=== PATIENT | male | born 1960 | race Two or more races ===

== ENCOUNTER 2021-10-26 16:34 | Inpatient (IN) | payer OTHER ==
[~2021-10-26 16:34] MED LIST: Iopamidol-370 76% 500 ML 1 ML ONE
[2021-10-26] MEDS ORDERED: ceFAZolin 2 GM/DEX 5% 100 ML BAG ONE (16:40)
[2021-10-26] MEDS ORDERED: Boostrix 0.5 ML (Tdap) VIAL ONE (16:40)
[2021-10-26] MEDS ORDERED: Fentanyl 100 MCG/2 ML VIAL ONE ×2 (16:46→18:00)
[2021-10-26 16:52] LABS: #Basophils 0.1 thou/uL (0.0-0.2); #Eosinphils 0.1 thou/uL (0.0-0.7); #Lymphocytes 2.2 thou/uL (1.20-3.40); #Monocytes 0.9 thou/uL (0.11-0.59); #Neutrophils 13.2 thou/uL (1.40-6.50); %Basophils 0.4 % (0.0-1.0); %Eosinophils 0.8 % (0.0-10.0); %Lymphocytes 13.1 % (21.0-51.0); %Monocytes 5.5 % (0.0-10.0); %Neutrophils 80.2 % (42.0-75.0); Hemoglobin 13.5 g/dL (14.0-18.0); Mean Corpuscular HGB CONC 33.2 g/dL (32.0-36.0); Mean Corpuscular Hemoglobin 32.2 pg (27.0-31.0); Mean Platelet Volume 6.2 fL (7.4-10.4); Platelet Count 238 thou/uL (130-400); RBC Distribution Width 12.9 % (11.5-14.5); Red Blood Cell (RBC) Count 4.18 mill/uL (4.70-6.10); White Blood Cell (WBC) Count 16.4 thou/uL (4.8-10.8)
[2021-10-26 17:00] LABS: Bilirubin Negative (Negative); Blood, Urine Negative (Negative); Clarity Clear (Clear); Glucose, Urine (Dipstick) Normal (Negative); Ketone, Urine Negative (Negative); Leukocyte Negative Leu/uL (Negative); Nitrite Negative (Negative); Protein, Urine (Dipstick) Negative (Neg-Trace); Specific Gravity, Urine 1.012 (1.002-1.036); Urobilinogen Normal mg/dL (Less than 2); pH, Urine 6.5 (5.0-9.0)
[2021-10-26 17:03] LABS: INR-International Normal Ratio 1.1; Prothrombin Time 14.8 sec (12.0-14.7)
[2021-10-26 17:04] LABS: PTT 37.3 sec (22.9-36.1)
[2021-10-26 17:13] LABS: Amphetamine Not Detected (NotDetected); Barbiturates Screen Not Detected (NotDetected); Benzodiazepine Screen Not Detected (NotDetected); Cocaine Metabolite Screen Detected (NotDetected); Methadone Not Detected (NotDetected); Methamphetamine Not Detected (NotDetected); Opiate Screen Not Detected (NotDetected); Oxycodone Screen Not Detected (NotDetected); Phencyclidine (PCP) Not Detected (NotDetected); THC/Cannabinoid Screen Not Detected (NotDetected); Tricyclic Screen Not Detected (NotDetected)
[2021-10-26] MEDS ORDERED: fentaNYL Citrate/PF 2,000 MCG in Sodium Chloride 0.9% 60 ML IV SCH (17:15)
[2021-10-26 17:21] LABS: ALT (SGPT) 26 U/L (8-55); AST (SGOT) 44 U/L (5-34); Albumin 3.7 g/dL (3.4-4.8); Alcohol Less than 10 mg/dL (Less than 10); Alkaline Phosphatase 85 U/L (40-110); Anion Gap 9 mmol/L (10-20); BUN (Urea Nitrogen) 9 mg/dL (8.4-25.7); Bilirubin, Total 0.4 mg/dL (0.2-1.2); Calc. Creatinine Clearance 0 mL/min (70-130); Calcium 8.7 mg/dL (7.8-10.44); Carbon Dioxide 24 mmol/L (23-31); Chloride 110 mmol/L (98-107); Globulin 3.1 g/dL (2.4-3.5); Glucose 134 mg/dL (80-115); Potassium 3.3 mmol/L (3.5-5.1); Protein, Total 6.8 g/dL (5.8-8.1); Sodium 140 mmol/L (136-145)
[2021-10-26 17:22] LABS: Acetaminophen Less than 6.0 mcg/mL (10.0-30.0); Alcohol Less than 10 mg/dL (Less than 10); Salicylate Less than 8.0 mg/dL (15.0-30.0)
[2021-10-26 17:22] LABS: Actual Bicarbonate (HCO3a) 23.4 mEq/L (22-28); Base Excess (BEa) -1.8 mEq/L (-2.0 to +3.0); CO2 Tension 41.3 mmHg (35.0-45.0); Calcium, Ionized (arterial) 1.11 mmol/L (1.12-1.30); Hemoglobin (Hb) 12.6 g/dL (14.0-18.0); O2 Tension (PaO2), arterial 96.4 mmHg (> 80.0); pH, Arterial 7.37 (7.35-7.45)
[2021-10-26] MEDS ORDERED: manNITOL 20% 500 ML ONE (17:23)
[2021-10-26 17:31] LABS: ALV-art Gradient 208.475 mmHg (0-20); Puncture Site RRA
[2021-10-26] MEDS ORDERED: Lidocaine 0.5%/Epinephrine 1:200,000 50 ml Vial ONE (17:41)
[2021-10-26] MEDS ORDERED: Thrombin 5000 UNITS/5 ML VIAL ONE (17:47)
[2021-10-26] MEDS ORDERED: Neomycin-Polymyxin 1 ML AMP ONE (17:47)
[2021-10-26] MEDS ORDERED: Phenylephrine 10 MG/ML VIAL ONE (17:58)
[2021-10-26] MEDS ORDERED: Calcium Chloride 1 GM/10 ML Abboject SYRINGE ONE (17:58)
[2021-10-26] MEDS ORDERED: PROPOFOL 200 MG/20 ML VIAL ONE (17:58)
[2021-10-26] MEDS ORDERED: Rocuronium Bromide 10 MG/ML (10ML VIAL) ONE (17:58)
[2021-10-26] MEDS ORDERED: ePHEDrine 50 MG/ML VIAL ONE (17:58)
[2021-10-26] MEDS ORDERED: Midazolam HCl 2 mg/2 ml Vial ONE (18:19)
[2021-10-26] MEDS ORDERED: Albumin 5% 250 ML ONE (18:24)
[2021-10-26] MEDS ORDERED: Bacitracin Zinc Ointment 30 gm TUBE ONE (19:00)
[2021-10-26] MEDS ORDERED: Ondansetron PF 4 MG/2 ML Vial IVP PRN (20:03)
[2021-10-26] MEDS ORDERED: Ventilator Sedation Protocol 1 EACH FS SCH (20:03)
[2021-10-26] MEDS ORDERED: Ondansetron ODT 4 MG TAB PO PRN (20:03)
[2021-10-26] MEDS ORDERED: Dextrose 5% in Water 1,000 ML IV PRN (20:03)
[2021-10-26] MEDS ORDERED: Dextrose 50% Abboject 50 ML SYRINGE SLOW IVP PRN (20:03)
[2021-10-26] MEDS ORDERED: Morphine 2 MG/ML VIAL SLOW IVP PRN (20:15)
[2021-10-26] MEDS ORDERED: DISCONTINUE PREVIOUS NARCOTIC PAIN MEDICATIONS AND BENZODIAZEPINES FS SCH (20:15)
[2021-10-26] MEDS ORDERED: Propofol BOLUS 1,000 MG/100 ML VIAL IV PRN (20:15)
[2021-10-26] MEDS ORDERED: Fentanyl BOLUS 250 ML IVPB PRN (20:15)
[2021-10-26] MEDS: hydrALAZINE 20 MG/ML VIAL SLOW IVP PRN (20:31)
[2021-10-26] MEDS: Sodium Chloride 0.9% 1,000 ML IV SCH (20:33)
[2021-10-26 20:49] LABS: Base Excess (BEa) -8.1 mEq/L (-2.0 to +3.0); CO2 Tension 38.8 mmHg (35.0-45.0); Calcium, Ionized (arterial) 1.23 mmol/L (1.12-1.30); Carboxyhemoglobin (COHb) 1.3 gm% (0.0-3.0); Hemoglobin (Hb) 11.7 g/dL (14.0-18.0); Potassium - ABG Lab 4.44 mmol/L (3.70-5.30); pH, Arterial 7.28 (7.35-7.45)
[2021-10-26 20:50] LABS: Puncture Site Arterial Line
[2021-10-26] MEDS ORDERED: hydrALAZINE 20 MG/ML VIAL SLOW IVP SCH ×2 (21:00→21:45)
[2021-10-26] MEDS: fentaNYL Citrate/PF 2,000 MCG in Sodium Chloride 0.9% 60 ML IV SCH (21:09)
[2021-10-26 23:32] LABS: Actual Bicarbonate (HCO3a) 16.4 mEq/L (22-28); Calcium, Ionized (arterial) 1.12 mmol/L (1.12-1.30); Carboxyhemoglobin (COHb) 0.8 gm% (0.0-3.0); O2 Tension (PaO2), arterial 65.7 mmHg (> 80.0); Potassium - ABG Lab 4.27 mmol/L (3.70-5.30); pH, Arterial 7.46 (7.35-7.45)
[2021-10-26 23:34] LABS: CO2 Tension 23.9 mmHg (35.0-45.0)
[2021-10-26 23:35] LABS: ALV-art Gradient 260.925 mmHg (0-20); Puncture Site ARTERIAL LINE
[2021-10-26] MEDS ORDERED: Norepinephrine 8 MG/0.9% NS 250 ML ONE (23:44)
[2021-10-26] MEDS: Norepinephrine 8 MG/0.9% NS 250 ML IVPB SCH (23:52)
[2021-10-27] MEDS: Propofol 1,000 MG/100 ML VIAL IV PRN ×2 (00:50→07:48)
[2021-10-27] MEDS: Lorazepam 2 MG/ML VIAL SLOW IVP PRN (01:14)
[2021-10-27] MEDS: Sodium Chloride 0.9% 1,000 ML IV SCH ×3 (03:59→21:28)
[2021-10-27 05:20] LABS: #Lymphocytes 1.2 thou/uL (1.20-3.40); #Monocytes 1.1 thou/uL (0.11-0.59); #Neutrophils 12.5 thou/uL (1.40-6.50); %Eosinophils 0.2 % (0.0-10.0); %Lymphocytes 8.1 % (21.0-51.0); %Monocytes 7.1 % (0.0-10.0); %Neutrophils 84.6 % (42.0-75.0); Hemoglobin 10.4 g/dL (14.0-18.0); Mean Corpuscular HGB CONC 34.5 g/dL (32.0-36.0); Mean Corpuscular Hemoglobin 33.1 pg (27.0-31.0); Mean Corpuscular Volume 95.8 fL (78.0-98.0); Mean Platelet Volume 6.7 fL (7.4-10.4); Platelet Count 250 thou/uL (130-400); RBC Distribution Width 12.9 % (11.5-14.5); Red Blood Cell (RBC) Count 3.14 mill/uL (4.70-6.10); White Blood Cell (WBC) Count 14.8 thou/uL (4.8-10.8)
[2021-10-27 05:38] LABS: Anion Gap 12 mmol/L (10-20); BUN (Urea Nitrogen) 12 mg/dL (8.4-25.7); Calc. Creatinine Clearance 77 mL/min (70-130); Calcium 8.7 mg/dL (7.8-10.44); Carbon Dioxide 19 mmol/L (23-31); Chloride 114 mmol/L (98-107); Glucose 164 mg/dL (80-115); Magnesium 1.7 mg/dL (1.6-2.6); Phosphorus 3.3 mg/dL (2.3-4.7); Potassium 4.4 mmol/L (3.5-5.1); Sodium 141 mmol/L (136-145)
[2021-10-27 07:03] LABS: Actual Bicarbonate (HCO3a) 18.6 mEq/L (22-28); Base Excess (BEa) -5.3 mEq/L (-2.0 to +3.0); CO2 Tension 30.5 mmHg (35.0-45.0); Calcium, Ionized (arterial) 1.13 mmol/L (1.12-1.30); Carboxyhemoglobin (COHb) 0.3 gm% (0.0-3.0); Hemoglobin (Hb) 10.6 g/dL (14.0-18.0); O2 Tension (PaO2), arterial 113.2 mmHg (> 80.0); Potassium - ABG Lab 4.35 mmol/L (3.70-5.30)
[2021-10-27] MEDS ORDERED: Acetaminophen 650 MG/20.3 ML UDCUP PO PRN (07:08)
[2021-10-27] MEDS ORDERED: Piperacillin/Tazobactam 3.375 GM in Sodium Chloride 0.9% 100 ML IVPB SCH ×2 (07:15→07:30)
[2021-10-27] MEDS: Norepinephrine 8 MG/0.9% NS 250 ML IVPB SCH (07:47)
[2021-10-27 07:48] LABS: ALV-art Gradient 205.175 mmHg (0-20); Puncture Site Arterial Line
[2021-10-27] MEDS: fentaNYL Citrate/PF 2,000 MCG in Sodium Chloride 0.9% 60 ML IV SCH (09:59)
[2021-10-27] MEDS: Famotidine/PF 20 mg/2ml Vial SLOW IVP SCH ×2 (10:16→20:27)
[2021-10-27] MEDS: HumaLOG 300 UNITS/3 ML VIAL SC PRN (10:57)
[2021-10-27] MEDS: Piperacillin/Tazobactam 3.375 GM in Sodium Chloride 0.9% 100 ML IVPB SCH ×2 (15:02→21:28)
[2021-10-27] MEDS: fentaNYL Citrate-0.9 % NaCl/PF 100 ML IVPB SCH (20:27)
[2021-10-27] MEDS: hydrALAZINE 20 MG/ML VIAL SLOW IVP PRN (23:29)
[2021-10-28] MEDS ORDERED: Labetalol HCl 100 MG/20 ML VIAL SLOW IVP PRN (00:52)
[2021-10-28] MEDS ORDERED: hydrALAZINE 20 MG/ML VIAL SLOW IVP PRN (00:55)
[2021-10-28] MEDS ORDERED: hydrALAZINE 20 MG/ML VIAL SLOW IVP SCH (01:00)
[2021-10-28 02:01] LABS: Actual Bicarbonate (HCO3a) 21.9 mEq/L (22-28); CO2 Tension 33.5 mmHg (35.0-45.0); Calcium, Ionized (arterial) 1.08 mmol/L (1.12-1.30); Carboxyhemoglobin (COHb) 0.3 gm% (0.0-3.0); Hemoglobin (Hb) 8.4 g/dL (14.0-18.0); O2 Tension (PaO2), arterial 71.2 mmHg (> 80.0); Potassium - ABG Lab 3.81 mmol/L (3.70-5.30); pH, Arterial 7.43 (7.35-7.45)
[2021-10-28] MEDS: Lorazepam 2 MG/ML VIAL SLOW IVP PRN ×2 (02:49→15:23)
[2021-10-28] MEDS: Propofol 1,000 MG/100 ML VIAL IV PRN ×3 (04:07→21:29)
[2021-10-28 04:32] LABS: #Lymphocytes 1.6 thou/uL (1.20-3.40); #Neutrophils 8.6 thou/uL (1.40-6.50); %Basophils 0.1 % (0.0-1.0); %Eosinophils 0.2 % (0.0-10.0); %Lymphocytes 14.5 % (21.0-51.0); %Monocytes 8.9 % (0.0-10.0); %Neutrophils 76.3 % (42.0-75.0); Hemoglobin 8.1 g/dL (14.0-18.0); Mean Corpuscular HGB CONC 34.4 g/dL (32.0-36.0); Mean Corpuscular Hemoglobin 33.2 pg (27.0-31.0); Mean Corpuscular Volume 96.7 fL (78.0-98.0); Mean Platelet Volume 6.8 fL (7.4-10.4); Platelet Count 166 thou/uL (130-400); RBC Distribution Width 13.1 % (11.5-14.5); Red Blood Cell (RBC) Count 2.42 mill/uL (4.70-6.10); White Blood Cell (WBC) Count 11.3 thou/uL (4.8-10.8)
[2021-10-28 05:01] LABS: ALT (SGPT) 23 U/L (8-55); AST (SGOT) 49 U/L (5-34); Albumin 2.9 g/dL (3.4-4.8); Alkaline Phosphatase 54 U/L (40-110); Anion Gap 10 mmol/L (10-20); BUN (Urea Nitrogen) 11 mg/dL (8.4-25.7); Bilirubin, Total 0.6 mg/dL (0.2-1.2); Calc. Creatinine Clearance 120 mL/min (70-130); Carbon Dioxide 23 mmol/L (23-31); Chloride 115 mmol/L (98-107); Globulin 2.7 g/dL (2.4-3.5); Glucose 141 mg/dL (80-115); Magnesium 1.7 mg/dL (1.6-2.6); Phosphorus 2.3 mg/dL (2.3-4.7); Potassium 3.7 mmol/L (3.5-5.1); Protein, Total 5.6 g/dL (5.8-8.1); Sodium 144 mmol/L (136-145)
[2021-10-28] MEDS: Piperacillin/Tazobactam 3.375 GM in Sodium Chloride 0.9% 100 ML IVPB SCH ×3 (05:36→21:31)
[2021-10-28] MEDS: Sodium Chloride 0.9% 1,000 ML IV SCH ×3 (05:36→22:58)
[2021-10-28 07:18] LABS: Puncture Site RRA
[2021-10-28 07:19] LABS: ALV-art Gradient 599.925 mmHg (0-20)
[2021-10-28] MEDS: Labetalol HCl 100 MG/20 ML VIAL SLOW IVP PRN (07:58)
[2021-10-28] MEDS: Famotidine/PF 20 mg/2ml Vial SLOW IVP SCH ×2 (08:07→20:26)
[2021-10-28] MEDS: levETIRAcetam in NS 500 MG in Premix Bag 1 BAG IVPB SCH ×2 (08:08→20:26)
[2021-10-28] MEDS: NICARDIPINE IVPB SCH ×2 (11:00→14:21)
[2021-10-28] MEDS: SODIUM CHLORIDE IVPB SCH ×2 (11:00→14:21)
[2021-10-28] MEDS: fentaNYL Citrate-0.9 % NaCl/PF 100 ML IVPB SCH (13:29)
[2021-10-28 17:40] LABS: SARS-CoV-2 PCR by NAA Not Detected (NotDetected)
[2021-10-28] MEDS: Acetaminophen 650 MG/20.3 ML UDCUP PO SCH (21:31)
[2021-10-29] MEDS: fentaNYL Citrate-0.9 % NaCl/PF 100 ML IVPB SCH ×2 (00:20→13:55)
[2021-10-29] MEDS: Acetaminophen 650 MG/20.3 ML UDCUP PO SCH ×4 (02:22→20:57)
[2021-10-29] MEDS: Propofol 1,000 MG/100 ML VIAL IV PRN ×5 (03:20→20:58)
[2021-10-29 04:50] LABS: #Lymphocytes 1.3 thou/uL (1.20-3.40); #Monocytes 0.5 thou/uL (0.11-0.59); #Neutrophils 6.3 thou/uL (1.40-6.50); %Basophils 0.2 % (0.0-1.0); %Eosinophils 0.5 % (0.0-10.0); %Lymphocytes 15.6 % (21.0-51.0); %Monocytes 6.3 % (0.0-10.0); %Neutrophils 77.6 % (42.0-75.0); Hemoglobin 6.6 g/dL (14.0-18.0); Mean Corpuscular HGB CONC 34.6 g/dL (32.0-36.0); Mean Corpuscular Hemoglobin 33.5 pg (27.0-31.0); Mean Corpuscular Volume 96.8 fL (78.0-98.0); Mean Platelet Volume 6.7 fL (7.4-10.4); Platelet Count 130 thou/uL (130-400); RBC Distribution Width 12.9 % (11.5-14.5); Red Blood Cell (RBC) Count 1.98 mill/uL (4.70-6.10); White Blood Cell (WBC) Count 8.1 thou/uL (4.8-10.8)
[2021-10-29 05:12] LABS: ALT (SGPT) 21 U/L (8-55); AST (SGOT) 42 U/L (5-34); Albumin 2.6 g/dL (3.4-4.8); Alkaline Phosphatase 47 U/L (40-110); Anion Gap 10 mmol/L (10-20); BUN (Urea Nitrogen) 10 mg/dL (8.4-25.7); Bilirubin, Total 0.5 mg/dL (0.2-1.2); Calc. Creatinine Clearance 121 mL/min (70-130); Calcium 7.4 mg/dL (7.8-10.44); Carbon Dioxide 22 mmol/L (23-31); Chloride 114 mmol/L (98-107); Globulin 2.4 g/dL (2.4-3.5); Glucose 159 mg/dL (80-115); Potassium 3.4 mmol/L (3.5-5.1); Sodium 143 mmol/L (136-145)
[2021-10-29 05:14] LABS: Phosphorus 1.5 mg/dL (2.3-4.7)
[2021-10-29] MEDS: Piperacillin/Tazobactam 3.375 GM in Sodium Chloride 0.9% 100 ML IVPB SCH ×3 (05:59→21:02)
[2021-10-29] MEDS ORDERED: Potassium Phosphate 30 MMOL in Sodium Chloride 0.9% 250 ML 250 ML IVPB SCH (06:30)
[2021-10-29] MEDS: Sodium Chloride 0.9% 1,000 ML IV SCH ×2 (06:40→14:57)
[2021-10-29 06:53] LABS: Actual Bicarbonate (HCO3a) 23.3 mEq/L (22-28); Base Excess (BEa) -1.5 mEq/L (-2.0 to +3.0); CO2 Tension 39.3 mmHg (35.0-45.0); Carboxyhemoglobin (COHb) 0.5 gm% (0.0-3.0); Hemoglobin (Hb) 7.1 g/dL (14.0-18.0); Potassium - ABG Lab 3.44 mmol/L (3.70-5.30); pH, Arterial 7.39 (7.35-7.45)
[2021-10-29 07:01] LABS: O2 Tension (PaO2), arterial 57.9 mmHg (> 80.0); Puncture Site LRA
[2021-10-29 07:02] LABS: ALV-art Gradient 534.675 mmHg (0-20)
[2021-10-29] MEDS ORDERED: Calcium Chloride 1 GM/10 ML Abboject SYRINGE IVP SCH (08:00)
[2021-10-29] MEDS ORDERED: Calcium Chloride 13.6 MEQ in Sodium Chloride 0.9% 100 ML IVPB SCH (08:30)
[2021-10-29] MEDS ORDERED: FLU VACC QS2021-22(6MOS UP)/PF 60 MCG/0.5 ML SYRINGE IM ONE (09:00)
[2021-10-29] MEDS: levETIRAcetam in NS 500 MG in Premix Bag 1 BAG IVPB SCH (09:03)
[2021-10-29] MEDS: Famotidine/PF 20 mg/2ml Vial SLOW IVP SCH ×2 (09:03→20:57)
[2021-10-29] MEDS ORDERED: Vecuronium 10 MG VIAL ONE (10:50)
[2021-10-29] MEDS ORDERED: Sterile Water 10 ML ONE (10:50)
[2021-10-29] MEDS ORDERED: Vecuronium 10 MG VIAL IV SCH (11:30)
[2021-10-29] MEDS: Labetalol HCl 100 MG/20 ML VIAL SLOW IVP PRN ×2 (14:27→17:50)
[2021-10-29 14:36] LABS: Hemoglobin 9.6 g/dL (14.0-18.0)
[2021-10-29] MEDS: Senokot S 8.6-50 MG TAB PO SCH (20:57)
[2021-10-29] MEDS: levETIRAcetam in NS 1,000 MG in Premix Bag 1 BAG IVPB SCH (20:57)
[2021-10-30] MEDS: Sodium Chloride 0.9% 1,000 ML IV SCH ×2 (01:06→18:26)
[2021-10-30] MEDS: Acetaminophen 650 MG/20.3 ML UDCUP PO SCH ×4 (02:44→21:49)
[2021-10-30] MEDS: fentaNYL Citrate-0.9 % NaCl/PF 100 ML IVPB SCH ×2 (02:49→12:35)
[2021-10-30] MEDS: Piperacillin/Tazobactam 3.375 GM in Sodium Chloride 0.9% 100 ML IVPB SCH ×3 (05:05→21:50)
[2021-10-30 05:56] LABS: ALT (SGPT) 19 U/L (8-55); AST (SGOT) 33 U/L (5-34); Albumin 2.4 g/dL (3.4-4.8); Alkaline Phosphatase 48 U/L (40-110); Anion Gap 12 mmol/L (10-20); BUN (Urea Nitrogen) 9 mg/dL (8.4-25.7); Bilirubin, Total 0.7 mg/dL (0.2-1.2); Calc. Creatinine Clearance 148 mL/min (70-130); Calcium 7.9 mg/dL (7.8-10.44); Carbon Dioxide 24 mmol/L (23-31); Chloride 114 mmol/L (98-107); Globulin 2.9 g/dL (2.4-3.5); Glucose 175 mg/dL (80-115); Magnesium 2.2 mg/dL (1.6-2.6); Potassium 3.6 mmol/L (3.5-5.1); Protein, Total 5.3 g/dL (5.8-8.1); Sodium 146 mmol/L (136-145)
[2021-10-30 06:58] LABS: #Eosinphils 0.1 thou/uL (0.0-0.7); #Lymphocytes 1.2 thou/uL (1.20-3.40); #Monocytes 0.4 thou/uL (0.11-0.59); #Neutrophils 5.2 thou/uL (1.40-6.50); %Basophils 0.2 % (0.0-1.0); %Eosinophils 1.6 % (0.0-10.0); %Lymphocytes 17.4 % (21.0-51.0); %Monocytes 5.3 % (0.0-10.0); %Neutrophils 75.5 % (42.0-75.0); Hemoglobin 8.5 g/dL (14.0-18.0); Mean Corpuscular HGB CONC 33.5 g/dL (32.0-36.0); Mean Corpuscular Hemoglobin 32.3 pg (27.0-31.0); Mean Corpuscular Volume 96.3 fL (78.0-98.0); Mean Platelet Volume 8.1 fL (7.4-10.4); Platelet Count 117 thou/uL (130-400); RBC Distribution Width 14.2 % (11.5-14.5); Red Blood Cell (RBC) Count 2.63 mill/uL (4.70-6.10); White Blood Cell (WBC) Count 6.9 thou/uL (4.8-10.8)
[2021-10-30 07:30] LABS: Actual Bicarbonate (HCO3a) 26.9 mEq/L (22-28); Base Excess (BEa) 1.5 mEq/L (-2.0 to +3.0); CO2 Tension 45.9 mmHg (35.0-45.0); Calcium, Ionized (arterial) 1.13 mmol/L (1.12-1.30); Carboxyhemoglobin (COHb) 0.3 gm% (0.0-3.0); Hemoglobin (Hb) 9.4 g/dL (14.0-18.0); O2 Tension (PaO2), arterial 97.3 mmHg (> 80.0); Potassium - ABG Lab 3.49 mmol/L (3.70-5.30); pH, Arterial 7.39 (7.35-7.45)
[2021-10-30 07:32] LABS: ALV-art Gradient 415.725 mmHg (0-20); Peep/CPAP 12.5 cmH2O; Puncture Site ARTLINE
[2021-10-30] MEDS: Famotidine/PF 20 mg/2ml Vial SLOW IVP SCH ×2 (09:21→21:50)
[2021-10-30] MEDS: Propofol 1,000 MG/100 ML VIAL IV PRN ×3 (09:21→21:50)
[2021-10-30] MEDS: Senokot S 8.6-50 MG TAB PO SCH ×2 (09:21→21:50)
[2021-10-30] MEDS: Lactated Ringer's 1,000 ML IV SCH ×2 (09:21→21:51)
[2021-10-30] MEDS: Polyethylene Glycol 3350 17 GM Packet PO SCH (09:21)
[2021-10-30] MEDS: levETIRAcetam in NS 1,000 MG in Premix Bag 1 BAG IVPB SCH (09:22)
[2021-10-30] MEDS: Labetalol HCl 100 MG/20 ML VIAL SLOW IVP PRN ×3 (09:24→21:51)
[2021-10-30] MEDS ORDERED: Furosemide 20 MG/2 ML VIAL SLOW IVP SCH (11:15)
[2021-10-30] MEDS ORDERED: hydrALAZINE 20 MG/ML VIAL SLOW IVP PRN (13:45)
[2021-10-30] MEDS ORDERED: levETIRAcetam in NS 1,000 MG in Premix Bag 1 BAG IVPB SCH (15:15)
[2021-10-30] MEDS: levETIRAcetam in NS 1,500 MG in Premix Bag 1 BAG IVPB SCH (21:50)
[2021-10-30] MEDS: HumaLOG 300 UNITS/3 ML VIAL SC PRN (22:00)
[2021-10-31] MEDS ORDERED: Morphine 4 MG/ML VIAL SLOW IVP PRN (00:14)
[2021-10-31] MEDS: fentaNYL Citrate-0.9 % NaCl/PF 100 ML IVPB SCH (00:36)
[2021-10-31] MEDS: HumaLOG 300 UNITS/3 ML VIAL SC PRN (01:57)
[2021-10-31] MEDS: Acetaminophen 650 MG/20.3 ML UDCUP PO SCH ×4 (02:00→20:00)
[2021-10-31] MEDS: Scopolamine 1.5 mg/72 hour Patch TD SCH (02:05)
[2021-10-31] MEDS: Piperacillin/Tazobactam 3.375 GM in Sodium Chloride 0.9% 100 ML IVPB SCH ×3 (05:17→21:18)
[2021-10-31 05:30] LABS: #Basophils 0.1 thou/uL (0.0-0.2); #Eosinphils 0.2 thou/uL (0.0-0.7); #Lymphocytes 1.6 thou/uL (1.20-3.40); #Monocytes 0.8 thou/uL (0.11-0.59); #Neutrophils 5.6 thou/uL (1.40-6.50); %Basophils 1.2 % (0.0-1.0); %Eosinophils 2.8 % (0.0-10.0); %Lymphocytes 19.2 % (21.0-51.0); %Monocytes 9.9 % (0.0-10.0); Hemoglobin 8.8 g/dL (14.0-18.0); Mean Corpuscular HGB CONC 33.6 g/dL (32.0-36.0); Mean Corpuscular Hemoglobin 32.4 pg (27.0-31.0); Mean Corpuscular Volume 96.5 fL (78.0-98.0); Mean Platelet Volume 8.7 fL (7.4-10.4); Platelet Count 147 thou/uL (130-400); RBC Distribution Width 14.4 % (11.5-14.5); White Blood Cell (WBC) Count 8.3 thou/uL (4.8-10.8)
[2021-10-31 06:07] LABS: Anion Gap 14 mmol/L (10-20); BUN (Urea Nitrogen) 14 mg/dL (8.4-25.7); Calc. Creatinine Clearance 149 mL/min (70-130); Calcium 8.1 mg/dL (7.8-10.44); Carbon Dioxide 25 mmol/L (23-31); Chloride 112 mmol/L (98-107); Glucose 138 mg/dL (80-115); Magnesium 2.3 mg/dL (1.6-2.6); Phosphorus 1.9 mg/dL (2.3-4.7); Potassium 4.2 mmol/L (3.5-5.1); Sodium 147 mmol/L (136-145)
[2021-10-31 06:58] LABS: Actual Bicarbonate (HCO3a) 29.3 mEq/L (22-28); Base Excess (BEa) 4.6 mEq/L (-2.0 to +3.0); CO2 Tension 44.6 mmHg (35.0-45.0); Calcium, Ionized (arterial) 1.08 mmol/L (1.12-1.30); Carboxyhemoglobin (COHb) 0.3 gm% (0.0-3.0); Hemoglobin (Hb) 9.7 g/dL (14.0-18.0); O2 Tension (PaO2), arterial 112.2 mmHg (> 80.0); Potassium - ABG Lab 3.13 mmol/L (3.70-5.30); pH, Arterial 7.44 (7.35-7.45)
[2021-10-31 07:00] LABS: Puncture Site Arterial Line
[2021-10-31 07:01] LABS: Peep/CPAP 12.5 cmH2O
[2021-10-31] MEDS: Propofol 1,000 MG/100 ML VIAL IV PRN ×4 (07:03→23:26)
[2021-10-31] MEDS ORDERED: Calcium Chloride 1 GM/10 ML Abboject SYRINGE IVP SCH (08:15)
[2021-10-31] MEDS: Famotidine/PF 20 mg/2ml Vial SLOW IVP SCH ×2 (09:02→20:00)
[2021-10-31] MEDS: Polyethylene Glycol 3350 17 GM Packet PO SCH (09:03)
[2021-10-31] MEDS: Senokot S 8.6-50 MG TAB PO SCH ×2 (09:03→20:00)
[2021-10-31] MEDS: levETIRAcetam in NS 1,500 MG in Premix Bag 1 BAG IVPB SCH ×2 (09:05→20:01)
[2021-10-31] MEDS ORDERED: Furosemide 20 MG/2 ML VIAL SLOW IVP SCH (11:15)
[2021-10-31] MEDS: Lactated Ringer's 1,000 ML IV SCH (11:29)
[2021-10-31] MEDS: Labetalol HCl 100 MG/20 ML VIAL SLOW IVP PRN ×2 (11:54→19:47)
[2021-10-31] MEDS: hydrALAZINE 20 MG/ML VIAL SLOW IVP PRN (17:35)
[2021-11-01] MEDS: Propofol 1,000 MG/100 ML VIAL IV PRN ×7 (02:41→21:54)
[2021-11-01] MEDS: Acetaminophen 650 MG/20.3 ML UDCUP PO SCH ×4 (02:41→20:30)
[2021-11-01] MEDS: Lactated Ringer's 1,000 ML IV SCH (02:42)
[2021-11-01] MEDS: Labetalol HCl 100 MG/20 ML VIAL SLOW IVP PRN ×2 (02:42→20:26)
[2021-11-01] MEDS: Piperacillin/Tazobactam 3.375 GM in Sodium Chloride 0.9% 100 ML IVPB SCH ×3 (05:04→21:20)
[2021-11-01 06:50] LABS: Anion Gap 9 mmol/L (10-20); BUN (Urea Nitrogen) 16 mg/dL (8.4-25.7); Calc. Creatinine Clearance 135 mL/min (70-130); Calcium 8.4 mg/dL (7.8-10.44); Carbon Dioxide 32 mmol/L (23-31); Chloride 108 mmol/L (98-107); Glucose 161 mg/dL (80-115); Magnesium 2.1 mg/dL (1.6-2.6); Phosphorus 2.3 mg/dL (2.3-4.7); Potassium 3.1 mmol/L (3.5-5.1); Sodium 146 mmol/L (136-145)
[2021-11-01 07:07] LABS: Actual Bicarbonate (HCO3a) 28.2 mEq/L (22-28); Base Excess (BEa) 4.9 mEq/L (-2.0 to +3.0); CO2 Tension 37.1 mmHg (35.0-45.0); Calcium, Ionized (arterial) 1.13 mmol/L (1.12-1.30); Carboxyhemoglobin (COHb) 0.8 gm% (0.0-3.0); Hemoglobin (Hb) 13.7 g/dL (14.0-18.0); O2 Tension (PaO2), arterial 69.2 mmHg (> 80.0); Potassium - ABG Lab 3.13 mmol/L (3.70-5.30)
[2021-11-01 07:08] LABS: ALV-art Gradient 312.225 mmHg (0-20); Peep/CPAP 12.5 cmH2O; Puncture Site LRA
[2021-11-01 08:18] LABS: #Eosinphils 0.3 thou/uL (0.0-0.7); #Lymphocytes 1.4 thou/uL (1.20-3.40); #Monocytes 0.7 thou/uL (0.11-0.59); #Neutrophils 6.7 thou/uL (1.40-6.50); %Basophils 0.1 % (0.0-1.0); %Eosinophils 3.3 % (0.0-10.0); %Lymphocytes 15.4 % (21.0-51.0); %Monocytes 7.7 % (0.0-10.0); %Neutrophils 73.5 % (42.0-75.0); Hemoglobin 8.7 g/dL (14.0-18.0); Mean Corpuscular HGB CONC 31.8 g/dL (32.0-36.0); Mean Corpuscular Hemoglobin 31.2 pg (27.0-31.0); Mean Corpuscular Volume 98.1 fL (78.0-98.0); Platelet Count 171 thou/uL (130-400); RBC Distribution Width 14.1 % (11.5-14.5); White Blood Cell (WBC) Count 9.1 thou/uL (4.8-10.8)
[2021-11-01] MEDS: Senokot S 8.6-50 MG TAB PO SCH ×3 (09:50→20:39)
[2021-11-01] MEDS: Famotidine/PF 20 mg/2ml Vial SLOW IVP SCH ×2 (09:50→20:30)
[2021-11-01] MEDS: hydrALAZINE 20 MG/ML VIAL SLOW IVP PRN ×2 (09:51→14:42)
[2021-11-01] MEDS: Polyethylene Glycol 3350 17 GM Packet PO SCH ×2 (09:51)
[2021-11-01] MEDS: levETIRAcetam in NS 1,500 MG in Premix Bag 1 BAG IVPB SCH ×2 (09:52→20:30)
[2021-11-01] MEDS: Lorazepam 2 MG/ML VIAL SLOW IVP PRN (14:31)
[2021-11-01] MEDS: Vecuronium 10 MG VIAL IV PRN (14:39)
[2021-11-01] MEDS: fentaNYL Citrate-0.9 % NaCl/PF 100 ML IVPB SCH (17:54)
[2021-11-02] MEDS: Acetaminophen 650 MG/20.3 ML UDCUP PO SCH ×4 (02:35→20:48)
[2021-11-02 04:42] LABS: Band 61 % (5-11); Hemoglobin 8.8 g/dL (14.0-18.0); Hypochromia SLIGHT = 6-15 cells (100X) (0-5/hpf); Lymphocytes 5 % (21-51); MDiff Complete? YES; Mean Corpuscular HGB CONC 32.4 g/dL (32.0-36.0); Mean Corpuscular Hemoglobin 31.9 pg (27.0-31.0); Mean Corpuscular Volume 98.6 fL (78.0-98.0); Mean Platelet Volume 8.4 fL (7.4-10.4); Monocytes 2 % (0-10); Neutrophil 32 % (42-75); Platelet Count 202 thou/uL (130-400); RBC Distribution Width 14.4 % (11.5-14.5); Red Blood Cell (RBC) Count 2.77 mill/uL (4.70-6.10); Reflex for Review?? YES; White Blood Cell (WBC) Count 11.5 thou/uL (4.8-10.8)
[2021-11-02 05:04] LABS: Anion Gap 15 mmol/L (10-20); BUN (Urea Nitrogen) 17 mg/dL (8.4-25.7); Calc. Creatinine Clearance 133 mL/min (70-130); Calcium 8.4 mg/dL (7.8-10.44); Carbon Dioxide 28 mmol/L (23-31); Chloride 108 mmol/L (98-107); Glucose 168 mg/dL (80-115); Magnesium 2.1 mg/dL (1.6-2.6); Phosphorus 3.2 mg/dL (2.3-4.7); Potassium 3.7 mmol/L (3.5-5.1); Sodium 147 mmol/L (136-145)
[2021-11-02] MEDS: Piperacillin/Tazobactam 3.375 GM in Sodium Chloride 0.9% 100 ML IVPB SCH ×3 (05:59→22:35)
[2021-11-02] MEDS: fentaNYL Citrate-0.9 % NaCl/PF 100 ML IVPB SCH ×2 (06:01→20:27)
[2021-11-02] MEDS: Propofol 1,000 MG/100 ML VIAL IV PRN ×4 (06:10→19:29)
[2021-11-02 07:40] LABS: Actual Bicarbonate (HCO3a) 29.6 mEq/L (22-28); Base Excess (BEa) 4.5 mEq/L (-2.0 to +3.0); CO2 Tension 46.5 mmHg (35.0-45.0); Calcium, Ionized (arterial) 1.11 mmol/L (1.12-1.30); Carboxyhemoglobin (COHb) 0.7 gm% (0.0-3.0); O2 Tension (PaO2), arterial 66.3 mmHg (> 80.0); Potassium - ABG Lab 3.52 mmol/L (3.70-5.30); pH, Arterial 7.42 (7.35-7.45)
[2021-11-02 07:41] LABS: ALV-art Gradient 303.375 mmHg (0-20); Peep/CPAP 12.5 cmH2O; Puncture Site LRA
[2021-11-02] MEDS: levETIRAcetam in NS 1,500 MG in Premix Bag 1 BAG IVPB SCH ×2 (09:26→20:49)
[2021-11-02] MEDS: Senokot S 8.6-50 MG TAB PO SCH ×3 (09:30→20:51)
[2021-11-02] MEDS: Famotidine/PF 20 mg/2ml Vial SLOW IVP SCH ×2 (09:31→20:49)
[2021-11-02] MEDS: Polyethylene Glycol 3350 17 GM Packet PO SCH (09:31)
[2021-11-02] MEDS: Lorazepam 2 MG/ML VIAL SLOW IVP PRN (09:34)
[2021-11-02] MEDS: Vecuronium 10 MG VIAL IV PRN ×2 (09:40→15:41)
[2021-11-02] MEDS ORDERED: Furosemide 20 MG/2 ML VIAL SLOW IVP SCH ×3 (12:15→20:00)
[2021-11-02] MEDS ORDERED: Furosemide 40 MG/4 ML VIAL ONE (13:27)
[2021-11-02] MEDS: hydrALAZINE 20 MG/ML VIAL SLOW IVP PRN (13:48)
[2021-11-02] MEDS: cloNIDine 0.1 MG TAB PO SCH ×2 (17:36→20:49)
[2021-11-02] MEDS: Furosemide 20 MG/2 ML VIAL SLOW IVP SCH (20:49)
[2021-11-02] MEDS: Scopolamine 1.5 mg/72 hour Patch TD SCH (23:46)
[2021-11-03] MEDS: Propofol 1,000 MG/100 ML VIAL IV PRN ×4 (00:19→17:50)
[2021-11-03] MEDS ORDERED: Furosemide 20 MG/2 ML VIAL SLOW IVP SCH ×2 (04:00→12:00)
[2021-11-03] MEDS: cloNIDine 0.1 MG TAB PO SCH ×2 (04:20→08:29)
[2021-11-03] MEDS: Acetaminophen 650 MG/20.3 ML UDCUP PO SCH ×4 (04:21→21:02)
[2021-11-03] MEDS: Furosemide 20 MG/2 ML VIAL SLOW IVP SCH ×5 (04:21→22:42)
[2021-11-03 07:24] LABS: Hemoglobin 8.6 g/dL (14.0-18.0); Mean Corpuscular HGB CONC 31.3 g/dL (32.0-36.0); Mean Corpuscular Hemoglobin 32.1 pg (27.0-31.0); Mean Platelet Volume 9.3 fL (7.4-10.4); Platelet Count 188 thou/uL (130-400); RBC Distribution Width 14.6 % (11.5-14.5); Red Blood Cell (RBC) Count 2.68 mill/uL (4.70-6.10); White Blood Cell (WBC) Count 13.4 thou/uL (4.8-10.8)
[2021-11-03 07:41] LABS: Anion Gap 13 mmol/L (10-20); BUN (Urea Nitrogen) 23 mg/dL (8.4-25.7); Calc. Creatinine Clearance 122 mL/min (70-130); Calcium 8.5 mg/dL (7.8-10.44); Carbon Dioxide 28 mmol/L (23-31); Chloride 108 mmol/L (98-107); Glucose 140 mg/dL (80-115); Magnesium 2.3 mg/dL (1.6-2.6); Phosphorus 2.7 mg/dL (2.3-4.7); Potassium 3.2 mmol/L (3.5-5.1); Sodium 146 mmol/L (136-145)
[2021-11-03] MEDS ORDERED: Potassium Phosphate 30 MMOL in Sodium Chloride 0.9% 250 ML 250 ML IVPB SCH (07:45)
[2021-11-03] MEDS: Piperacillin/Tazobactam 3.375 GM in Sodium Chloride 0.9% 100 ML IVPB SCH ×3 (07:50→21:03)
[2021-11-03] MEDS: fentaNYL Citrate-0.9 % NaCl/PF 100 ML IVPB SCH (07:55)
[2021-11-03 08:01] LABS: Band 37 % (5-11); Eosinophils 2 % (0-10); Lymphocytes 8 % (21-51); MDiff Complete? YES; Macrocytosis SLIGHT = 6-15 cells (100X) (0-5/hpf); Metamyelocyte 1 % (0-0); Monocytes 2 % (0-10); Myelocyte 2 % (0-0); Neutrophil 48 % (42-75); Platelet Morphology Comment Appears Adequate; Polychromasia MODERATE = 3-4 cells (100X) (0-2/hpf)
[2021-11-03 08:01] LABS: Actual Bicarbonate (HCO3a) 30.4 mEq/L (22-28); Base Excess (BEa) 6.3 mEq/L (-2.0 to +3.0); CO2 Tension 42.3 mmHg (35.0-45.0); Carboxyhemoglobin (COHb) 1.1 gm% (0.0-3.0); Hemoglobin (Hb) 7.2 g/dL (14.0-18.0); O2 Tension (PaO2), arterial 84.3 mmHg (> 80.0); Potassium - ABG Lab 3.12 mmol/L (3.70-5.30); pH, Arterial 7.48 (7.35-7.45)
[2021-11-03 08:10] LABS: Peep/CPAP 12.5 cmH2O; Puncture Site RRA
[2021-11-03 08:11] LABS: ALV-art Gradient 361.925 mmHg (0-20)
[2021-11-03] MEDS: Polyethylene Glycol 3350 17 GM Packet PO SCH (08:28)
[2021-11-03] MEDS: Senokot S 8.6-50 MG TAB PO SCH ×2 (08:29→21:03)
[2021-11-03] MEDS: Famotidine/PF 20 mg/2ml Vial SLOW IVP SCH ×2 (08:29→21:03)
[2021-11-03] MEDS: levETIRAcetam in NS 1,500 MG in Premix Bag 1 BAG IVPB SCH (09:55)
[2021-11-03] MEDS: Labetalol HCl 100 MG/20 ML VIAL SLOW IVP PRN ×2 (16:07→21:03)
[2021-11-03] MEDS: hydrALAZINE 20 MG/ML VIAL SLOW IVP PRN (18:54)
[2021-11-04] MEDS: hydrALAZINE 20 MG/ML VIAL SLOW IVP PRN ×2 (00:10→05:57)
[2021-11-04] MEDS: Propofol 1,000 MG/100 ML VIAL IV PRN ×5 (01:20→22:53)
[2021-11-04] MEDS: Labetalol HCl 100 MG/20 ML VIAL SLOW IVP PRN ×2 (01:20→15:15)
[2021-11-04] MEDS: Acetaminophen 650 MG/20.3 ML UDCUP PO SCH ×4 (03:13→20:55)
[2021-11-04] MEDS: Furosemide 20 MG/2 ML VIAL SLOW IVP SCH (03:13)
[2021-11-04] MEDS: Piperacillin/Tazobactam 3.375 GM in Sodium Chloride 0.9% 100 ML IVPB SCH ×3 (05:54→22:30)
[2021-11-04] MEDS ORDERED: Morphine 4 MG/ML VIAL ONE ×2 (09:28→09:30)
[2021-11-04] MEDS ORDERED: Vecuronium 10 MG VIAL IV SCH (09:33)
[2021-11-04] MEDS ORDERED: Vecuronium 10 MG VIAL ONE (09:34)
[2021-11-04] MEDS: Polyethylene Glycol 3350 17 GM Packet PO SCH (09:38)
[2021-11-04] MEDS: Famotidine 20 MG TAB PO SCH ×2 (09:38→20:56)
[2021-11-04] MEDS: Senokot S 8.6-50 MG TAB PO SCH ×2 (09:38→20:56)
[2021-11-04] MEDS ORDERED: Fentanyl BOLUS 250 ML IVPB PRN (10:15)
[2021-11-04 10:22] LABS: Band 18 % (5-11); Hemoglobin 9.8 g/dL (14.0-18.0); Hypochromia SLIGHT = 6-15 cells (100X) (0-5/hpf); Lymphocytes 10 % (21-51); MDiff Complete? YES; Mean Corpuscular HGB CONC 31.9 g/dL (32.0-36.0); Mean Corpuscular Hemoglobin 30.8 pg (27.0-31.0); Mean Corpuscular Volume 96.7 fL (78.0-98.0); Mean Platelet Volume 8.4 fL (7.4-10.4); Metamyelocyte 3 % (0-0); Monocytes 5 % (0-10); Myelocyte 1 % (0-0); Neutrophil 63 % (42-75); Platelet Count 315 thou/uL (130-400); Platelet Morphology Comment Appears Adequate; Polychromasia SLIGHT = 2-3 cells (100X) (0-2/hpf); Red Blood Cell (RBC) Count 3.18 mill/uL (4.70-6.10)
[2021-11-04 10:29] LABS: Anion Gap 18 mmol/L (10-20); BUN (Urea Nitrogen) 22 mg/dL (8.4-25.7); Calc. Creatinine Clearance 120 mL/min (70-130); Calcium 9.1 mg/dL (7.8-10.44); Carbon Dioxide 23 mmol/L (23-31); Chloride 108 mmol/L (98-107); Glucose 138 mg/dL (80-115); Magnesium 2.3 mg/dL (1.6-2.6); Potassium 3.2 mmol/L (3.5-5.1); Sodium 146 mmol/L (136-145)
[2021-11-04] MEDS ORDERED: Morphine 4 MG/ML VIAL SLOW IVP SCH (11:12)
[2021-11-04 11:14] LABS: Base Excess (BEa) 3.6 mEq/L (-2.0 to +3.0); CO2 Tension 36.3 mmHg (35.0-45.0); Calcium, Ionized (arterial) 1.11 mmol/L (1.12-1.30); Carboxyhemoglobin (COHb) 0.1 gm% (0.0-3.0); Hemoglobin (Hb) 10.1 g/dL (14.0-18.0); O2 Tension (PaO2), arterial 74.3 mmHg (> 80.0); Potassium - ABG Lab 3.11 mmol/L (3.70-5.30); pH, Arterial 7.49 (7.35-7.45)
[2021-11-04 11:15] LABS: ALV-art Gradient 308.125 mmHg (0-20); Puncture Site LRA
[2021-11-04] MEDS ORDERED: Potassium Chloride 20 MEQ in Premix Bag 1 BAG IVPB SCH (11:15)
[2021-11-04] MEDS: fentaNYL Citrate/PF 2,000 MCG in Sodium Chloride 0.9% 60 ML IV PRN (12:11)
[2021-11-04] MEDS ORDERED: Calcium Chloride 1 GM/10 ML Abboject SYRINGE IVP SCH (12:30)
[2021-11-04] MEDS ORDERED: Vecuronium 10 MG VIAL IV PRN (15:30)
[2021-11-04] MEDS ORDERED: Midazolam HCl 2 mg/2 ml Vial SLOW IVP PRN (15:45)
[2021-11-04 19:45] LABS: Anion Gap 14 mmol/L (10-20); BUN (Urea Nitrogen) 24 mg/dL (8.4-25.7); Calc. Creatinine Clearance 119 mL/min (70-130); Calcium 8.9 mg/dL (7.8-10.44); Carbon Dioxide 27 mmol/L (23-31); Chloride 109 mmol/L (98-107); Glucose 113 mg/dL (80-115); Potassium 3.5 mmol/L (3.5-5.1); Sodium 146 mmol/L (136-145)
[2021-11-04] MEDS ORDERED: Potassium Chloride 10 MEQ in Premix Bag 1 BAG IVPB SCH (20:00)
[2021-11-05] MEDS: Acetaminophen 650 MG/20.3 ML UDCUP PO SCH ×4 (03:03→20:17)
[2021-11-05] MEDS: Propofol 1,000 MG/100 ML VIAL IV PRN ×3 (03:03→17:39)
[2021-11-05 04:19] LABS: Anion Gap 13 mmol/L (10-20); BUN (Urea Nitrogen) 23 mg/dL (8.4-25.7); Calc. Creatinine Clearance 148 mL/min (70-130); Calcium 8.6 mg/dL (7.8-10.44); Carbon Dioxide 27 mmol/L (23-31); Chloride 110 mmol/L (98-107); Glucose 118 mg/dL (80-115); Magnesium 2.2 mg/dL (1.6-2.6); Phosphorus 3.5 mg/dL (2.3-4.7); Potassium 3.4 mmol/L (3.5-5.1); Sodium 147 mmol/L (136-145)
[2021-11-05] MEDS: Piperacillin/Tazobactam 3.375 GM in Sodium Chloride 0.9% 100 ML IVPB SCH (06:00)
[2021-11-05] MEDS: Labetalol HCl 100 MG/20 ML VIAL SLOW IVP PRN ×3 (06:00→14:00)
[2021-11-05] MEDS: Famotidine 20 MG TAB PO SCH ×2 (09:27→20:18)
[2021-11-05] MEDS: Polyethylene Glycol 3350 17 GM Packet PO SCH (09:27)
[2021-11-05] MEDS: Senokot S 8.6-50 MG TAB PO SCH ×2 (09:27→20:17)
[2021-11-05] MEDS: hydrALAZINE 20 MG/ML VIAL SLOW IVP PRN ×4 (10:42→23:30)
[2021-11-05 12:29] LABS: SARS-CoV-2 PCR by NAA Not Detected (NotDetected)
[2021-11-05] MEDS: Cefepime 2 GM in Sodium Chloride 0.9% 100 ML IVPB SCH ×2 (13:59→22:08)
[2021-11-05 14:26] LABS: Bacteria/HPF None Seen HPF (None Seen); Bilirubin Negative (Negative); Blood, Urine 1+ (Negative); Clarity Turbid (Clear); Glucose, Urine (Dipstick) Normal (Negative); Ketone, Urine Negative (Negative); Leukocyte Negative Leu/uL (Negative); Nitrite Negative (Negative); Protein, Urine (Dipstick) 50 mg/dL (Neg-Trace); Specific Gravity, Urine 1.027 (1.002-1.036); Squamous Epithelial None Seen HPF (0-3)
[2021-11-05 14:28] LABS: Hemoglobin 9.4 g/dL (14.0-18.0); Mean Corpuscular HGB CONC 32.3 g/dL (32.0-36.0); Mean Corpuscular Hemoglobin 31.1 pg (27.0-31.0); Mean Corpuscular Volume 96.3 fL (78.0-98.0); Mean Platelet Volume 8.2 fL (7.4-10.4); Platelet Count 350 thou/uL (130-400); Red Blood Cell (RBC) Count 3.02 mill/uL (4.70-6.10); White Blood Cell (WBC) Count 18.3 thou/uL (4.8-10.8)
[2021-11-05 14:38] LABS: INR-International Normal Ratio 1.1; PTT 33.4 sec (22.9-36.1); Prothrombin Time 13.9 sec (12.0-14.7)
[2021-11-05 14:57] LABS: ALT (SGPT) 30 U/L (8-55); AST (SGOT) 38 U/L (5-34); Albumin 2.8 g/dL (3.4-4.8); Alkaline Phosphatase 121 U/L (40-110); Anion Gap 14 mmol/L (10-20); BUN (Urea Nitrogen) 21 mg/dL (8.4-25.7); Bilirubin, Direct 0.5 mg/dL (0.1-0.3); Bilirubin, Total 1.1 mg/dL (0.2-1.2); Calc. Creatinine Clearance 135 mL/min (70-130); Calcium 8.6 mg/dL (7.8-10.44); Carbon Dioxide 23 mmol/L (23-31); Chloride 110 mmol/L (98-107); Globulin 3.7 g/dL (2.4-3.5); Glucose 137 mg/dL (80-115); Magnesium 2.1 mg/dL (1.6-2.6); Phosphorus 2.7 mg/dL (2.3-4.7); Potassium 3.3 mmol/L (3.5-5.1); Protein, Total 6.5 g/dL (5.8-8.1); Sodium 144 mmol/L (136-145)
[2021-11-05 15:05] LABS: Band 6 % (5-11); Eosinophils 1 % (0-10); Lymphocytes 8 % (21-51); MDiff Complete? YES; Monocytes 5 % (0-10); Neutrophil 79 % (42-75); Nucleated RBC 3 % (0); Ovalocytes SLIGHT = 2-5 cells (100X) (0-1/hpf); Platelet Morphology Comment Appears Adequate; Polychromasia MODERATE = 3-4 cells (100X) (0-2/hpf); Reactive Lymphocytes 1 % (0-10); Toxic Granulation SLIGHT
[2021-11-05] MEDS: Potassium Chloride 20 MEQ in Premix Bag 1 BAG IVPB SCH ×2 (16:28→18:23)
[2021-11-05] MEDS: fentaNYL Citrate/PF 2,000 MCG in Sodium Chloride 0.9% 60 ML IV PRN (19:14)
[2021-11-05 19:53] LABS: Hemoglobin 9.5 g/dL (14.0-18.0); Mean Corpuscular HGB CONC 32.6 g/dL (32.0-36.0); Mean Corpuscular Hemoglobin 31.5 pg (27.0-31.0); Mean Corpuscular Volume 96.5 fL (78.0-98.0); Mean Platelet Volume 8.3 fL (7.4-10.4); Platelet Count 367 thou/uL (130-400); RBC Distribution Width 13.9 % (11.5-14.5); Red Blood Cell (RBC) Count 3.02 mill/uL (4.70-6.10)
[2021-11-05 19:58] LABS: INR-International Normal Ratio 1.1; Prothrombin Time 13.8 sec (12.0-14.7)
[2021-11-05 19:59] LABS: PTT 35.1 sec (22.9-36.1)
[2021-11-05 20:05] LABS: ALT (SGPT) 29 U/L (8-55); AST (SGOT) 33 U/L (5-34); Albumin 2.9 g/dL (3.4-4.8); Alkaline Phosphatase 119 U/L (40-110); Anion Gap 14 mmol/L (10-20); BUN (Urea Nitrogen) 23 mg/dL (8.4-25.7); Bilirubin, Direct 0.5 mg/dL (0.1-0.3); Calc. Creatinine Clearance 137 mL/min (70-130); Calcium 8.4 mg/dL (7.8-10.44); Carbon Dioxide 22 mmol/L (23-31); Chloride 112 mmol/L (98-107); Globulin 3.8 g/dL (2.4-3.5); Glucose 127 mg/dL (80-115); Magnesium 2.2 mg/dL (1.6-2.6); Phosphorus 2.8 mg/dL (2.3-4.7); Potassium 3.7 mmol/L (3.5-5.1); Protein, Total 6.7 g/dL (5.8-8.1); Sodium 144 mmol/L (136-145)
[2021-11-05 20:13] LABS: Band 14 % (5-11); Lymphocytes 5 % (21-51); MDiff Complete? YES; Metamyelocyte 1 % (0-0); Monocytes 2 % (0-10); Myelocyte 1 % (0-0); Neutrophil 77 % (42-75); Nucleated RBC 2 % (0); Platelet Morphology Comment Appears Adequate; Polychromasia MODERATE = 3-4 cells (100X) (0-2/hpf); White Blood Cell (WBC) Count 21.3 thou/uL (4.8-10.8)
[2021-11-05 22:34] LABS: Actual Bicarbonate (HCO3a) 23.9 mEq/L (22-28); Base Excess (BEa) 0.8 mEq/L (-2.0 to +3.0); CO2 Tension 32.8 mmHg (35.0-45.0); Calcium, Ionized (arterial) 1.11 mmol/L (1.12-1.30); Carboxyhemoglobin (COHb) 0.4 gm% (0.0-3.0); Hemoglobin (Hb) 9.8 g/dL (14.0-18.0); O2 Tension (PaO2), arterial 85.3 mmHg (> 80.0); Potassium - ABG Lab 3.89 mmol/L (3.70-5.30); pH, Arterial 7.48 (7.35-7.45)
[2021-11-05 22:36] LABS: Puncture Site ALINE
[2021-11-05] MEDS: Scopolamine 1.5 mg/72 hour Patch TD SCH (23:30)
[2021-11-06] MEDS: Labetalol HCl 100 MG/20 ML VIAL SLOW IVP PRN ×4 (01:05→19:17)
[2021-11-06 01:27] LABS: Hemoglobin 9.3 g/dL (14.0-18.0); Mean Corpuscular Volume 96.7 fL (78.0-98.0); Mean Platelet Volume 8.1 fL (7.4-10.4); Platelet Count 353 thou/uL (130-400); RBC Distribution Width 14.1 % (11.5-14.5); Red Blood Cell (RBC) Count 2.99 mill/uL (4.70-6.10); White Blood Cell (WBC) Count 18.9 thou/uL (4.8-10.8)
[2021-11-06 01:37] LABS: Bacteria/HPF None Seen HPF (None Seen); Bilirubin Negative (Negative); Blood, Urine 1+ (Negative); Clarity Clear (Clear); Glucose, Urine (Dipstick) Normal (Negative); Ketone, Urine Negative (Negative); Leukocyte Negative Leu/uL (Negative); Nitrite Negative (Negative); Protein, Urine (Dipstick) 50 mg/dL (Neg-Trace); RBC/HPF 21-50 HPF (0-3); Specific Gravity, Urine 1.041 (1.002-1.036); Squamous Epithelial 0-3 HPF (0-3); Urobilinogen Normal mg/dL (Less than 2)
[2021-11-06 01:46] LABS: PTT 35.6 sec (22.9-36.1); Prothrombin Time 13.7 sec (12.0-14.7)
[2021-11-06 01:51] LABS: Band 16 % (5-11); Hypochromia SLIGHT = 6-15 cells (100X) (0-5/hpf); Lymphocytes 5 % (21-51); MDiff Complete? YES; Monocytes 10 % (0-10); Neutrophil 69 % (42-75); Platelet Morphology Comment Appears Adequate
[2021-11-06 01:52] LABS: ALT (SGPT) 30 U/L (8-55); AST (SGOT) 36 U/L (5-34); Albumin 2.7 g/dL (3.4-4.8); Alkaline Phosphatase 120 U/L (40-110); Anion Gap 16 mmol/L (10-20); BUN (Urea Nitrogen) 25 mg/dL (8.4-25.7); Bilirubin, Direct 0.5 mg/dL (0.1-0.3); Bilirubin, Total 0.9 mg/dL (0.2-1.2); Calc. Creatinine Clearance 133 mL/min (70-130); Calcium 8.5 mg/dL (7.8-10.44); Carbon Dioxide 21 mmol/L (23-31); Chloride 112 mmol/L (98-107); Globulin 3.8 g/dL (2.4-3.5); Glucose 131 mg/dL (80-115); Magnesium 2.3 mg/dL (1.6-2.6); Phosphorus 3.7 mg/dL (2.3-4.7); Potassium 3.7 mmol/L (3.5-5.1); Protein, Total 6.5 g/dL (5.8-8.1); Sodium 145 mmol/L (136-145)
[2021-11-06] MEDS: hydrALAZINE 20 MG/ML VIAL SLOW IVP PRN ×4 (02:44→21:29)
[2021-11-06] MEDS: Acetaminophen 650 MG/20.3 ML UDCUP PO SCH ×4 (02:44→21:28)
[2021-11-06 03:58] LABS: Anion Gap 15 mmol/L (10-20); BUN (Urea Nitrogen) 25 mg/dL (8.4-25.7); Calc. Creatinine Clearance 133 mL/min (70-130); Calcium 8.5 mg/dL (7.8-10.44); Carbon Dioxide 21 mmol/L (23-31); Chloride 112 mmol/L (98-107); Glucose 130 mg/dL (80-115); Magnesium 2.3 mg/dL (1.6-2.6); Phosphorus 3.4 mg/dL (2.3-4.7); Potassium 3.6 mmol/L (3.5-5.1); Sodium 144 mmol/L (136-145)
[2021-11-06 04:12] LABS: Band 8 % (5-11); Eosinophils 2 % (0-10); Hemoglobin 9.2 g/dL (14.0-18.0); Hypochromia SLIGHT = 6-15 cells (100X) (0-5/hpf); Lymphocytes 17 % (21-51); MDiff Complete? YES; Mean Corpuscular HGB CONC 32.1 g/dL (32.0-36.0); Mean Corpuscular Hemoglobin 30.8 pg (27.0-31.0); Mean Corpuscular Volume 96.1 fL (78.0-98.0); Mean Platelet Volume 8.4 fL (7.4-10.4); Monocytes 20 % (0-10); Neutrophil 53 % (42-75); Nucleated RBC 2 % (0); Platelet Count 374 thou/uL (130-400); Platelet Morphology Comment Appears Adequate; RBC Distribution Width 14.2 % (11.5-14.5); Red Blood Cell (RBC) Count 2.98 mill/uL (4.70-6.10); White Blood Cell (WBC) Count 19.9 thou/uL (4.8-10.8)
[2021-11-06] MEDS: Cefepime 2 GM in Sodium Chloride 0.9% 100 ML IVPB SCH ×3 (05:03→21:29)
[2021-11-06] MEDS: Potassium Chloride 10 MEQ in Premix Bag 1 BAG IVPB SCH ×2 (05:40→09:13)
[2021-11-06] MEDS ORDERED: Magnesium 2 GM/50 ML 2 GM in Premix Bag 1 BAG IVPB SCH (05:45)
[2021-11-06] MEDS: Famotidine 20 MG TAB PO SCH ×2 (09:13→21:28)
[2021-11-06] MEDS: Senokot S 8.6-50 MG TAB PO SCH ×2 (09:29→21:26)
[2021-11-06] MEDS: Polyethylene Glycol 3350 17 GM Packet PO SCH (09:29)
[2021-11-06 09:35] LABS: Hemoglobin 9.4 g/dL (14.0-18.0); Mean Corpuscular HGB CONC 31.4 g/dL (32.0-36.0); Mean Corpuscular Hemoglobin 30.6 pg (27.0-31.0); Mean Corpuscular Volume 97.5 fL (78.0-98.0); Mean Platelet Volume 8.3 fL (7.4-10.4); Platelet Count 390 thou/uL (130-400); RBC Distribution Width 14.4 % (11.5-14.5); Red Blood Cell (RBC) Count 3.08 mill/uL (4.70-6.10); White Blood Cell (WBC) Count 21.5 thou/uL (4.8-10.8)
[2021-11-06 09:49] LABS: INR-International Normal Ratio 1.1
[2021-11-06 09:50] LABS: PTT 35.5 sec (22.9-36.1)
[2021-11-06 10:38] LABS: ALT (SGPT) 30 U/L (8-55); AST (SGOT) 32 U/L (5-34); Albumin 2.8 g/dL (3.4-4.8); Alkaline Phosphatase 134 U/L (40-110); Anion Gap 14 mmol/L (10-20); BUN (Urea Nitrogen) 25 mg/dL (8.4-25.7); Bilirubin, Direct 0.4 mg/dL (0.1-0.3); Bilirubin, Total 0.9 mg/dL (0.2-1.2); Calc. Creatinine Clearance 135 mL/min (70-130); Calcium 8.4 mg/dL (7.8-10.44); Carbon Dioxide 22 mmol/L (23-31); Chloride 112 mmol/L (98-107); Globulin 3.7 g/dL (2.4-3.5); Glucose 122 mg/dL (80-115); Magnesium 2.7 mg/dL (1.6-2.6); Potassium 3.9 mmol/L (3.5-5.1); Protein, Total 6.5 g/dL (5.8-8.1); Sodium 144 mmol/L (136-145)
[2021-11-06 11:07] VITALS: BMI 27.9
[2021-11-06 11:07] LABS: Band 8 % (5-11); Eosinophils 1 % (0-10); Hypochromia SLIGHT = 6-15 cells (100X) (0-5/hpf); Lymphocytes 11 % (21-51); MDiff Complete? YES; Monocytes 6 % (0-10); Myelocyte 2 % (0-0); Neutrophil 70 % (42-75); Platelet Morphology Comment Appears Adequate; Polychromasia MODERATE = 3-4 cells (100X) (0-2/hpf); Reactive Lymphocytes 2 % (0-10)
[2021-11-06 11:17] LABS: Bacteria/HPF None Seen HPF (None Seen); Bilirubin Negative (Negative); Blood, Urine 1+ (Negative); Clarity Clear (Clear); Glucose, Urine (Dipstick) Normal (Negative); Ketone, Urine Negative (Negative); Leukocyte Negative Leu/uL (Negative); Nitrite Negative (Negative); Protein, Urine (Dipstick) 30 mg/dL (Neg-Trace); Specific Gravity, Urine 1.047 (1.002-1.036); Squamous Epithelial None Seen HPF (0-3); Urobilinogen Normal mg/dL (Less than 2)
[2021-11-06] MEDS: Propofol 1,000 MG/100 ML VIAL IV PRN ×2 (12:13→22:27)
[2021-11-06] MEDS ORDERED: Midazolam HCl 2 mg/2 ml Vial SLOW IVP SCH (12:15)
[2021-11-06 12:53] LABS: Hemoglobin 9.5 g/dL (14.0-18.0); Mean Corpuscular HGB CONC 32.5 g/dL (32.0-36.0); Mean Corpuscular Hemoglobin 31.6 pg (27.0-31.0); Mean Corpuscular Volume 97.3 fL (78.0-98.0); Mean Platelet Volume 8.4 fL (7.4-10.4); Platelet Count 385 thou/uL (130-400); RBC Distribution Width 14.3 % (11.5-14.5); White Blood Cell (WBC) Count 20.8 thou/uL (4.8-10.8)
[2021-11-06 13:02] LABS: INR-International Normal Ratio 1.1; Prothrombin Time 13.8 sec (12.0-14.7)
[2021-11-06 13:03] LABS: PTT 35.2 sec (22.9-36.1)
[2021-11-06 13:14] LABS: Bilirubin Negative (Negative); Blood, Urine Negative (Negative); Glucose, Urine (Dipstick) Negative (Negative); Ketone, Urine Negative (Negative); Leukocyte Negative (Negative); Nitrite Negative (Negative); Protein, Urine (Dipstick) Trace mg/dL (Neg-Trace); Urobilinogen 0.2 mg/dL (Less than 2); pH, Urine 5.5 (5.0-9.0)
[2021-11-06 13:20] LABS: ALT (SGPT) 28 U/L (8-55); AST (SGOT) 33 U/L (5-34); Albumin 2.7 g/dL (3.4-4.8); Alkaline Phosphatase 121 U/L (40-110); Anion Gap 16 mmol/L (10-20); BUN (Urea Nitrogen) 25 mg/dL (8.4-25.7); Bilirubin, Direct 0.3 mg/dL (0.1-0.3); Bilirubin, Total 0.9 mg/dL (0.2-1.2); Calc. Creatinine Clearance 138 mL/min (70-130); Calcium 8.4 mg/dL (7.8-10.44); Carbon Dioxide 19 mmol/L (23-31); Chloride 112 mmol/L (98-107); Glucose 130 mg/dL (80-115); Magnesium 2.5 mg/dL (1.6-2.6); Phosphorus 3.1 mg/dL (2.3-4.7); Potassium 4.1 mmol/L (3.5-5.1); Protein, Total 6.7 g/dL (5.8-8.1); Sodium 143 mmol/L (136-145)
[2021-11-06 13:23] LABS: Clarity Clear (Clear)
[2021-11-06 13:24] LABS: Specific Gravity, Urine 1.035 (1.002-1.036)
[2021-11-06 13:25] LABS: RBC/HPF 0-3 HPF (0-3); Squamous Epithelial 0-3 HPF (0-3); WBC/HPF 0-3 HPF (0-3)
[2021-11-06 13:30] LABS: Band 6 % (5-11); Eosinophils 2 % (0-10); Lymphocytes 15 % (21-51); MDiff Complete? YES; Monocytes 9 % (0-10); Neutrophil 68 % (42-75); Platelet Morphology Comment Appears Adequate; Polychromasia MODERATE = 3-4 cells (100X) (0-2/hpf)
[2021-11-06] MEDS ORDERED: Heparin 1,000 UNITS/ML VIAL SLOW IVP SCH (16:30)
[2021-11-06 19:39] LABS: Mean Corpuscular HGB CONC 31.6 g/dL (32.0-36.0); Mean Corpuscular Hemoglobin 30.6 pg (27.0-31.0); Mean Platelet Volume 8.1 fL (7.4-10.4); Platelet Count 431 thou/uL (130-400); RBC Distribution Width 14.4 % (11.5-14.5); Red Blood Cell (RBC) Count 3.25 mill/uL (4.70-6.10); White Blood Cell (WBC) Count 21.4 thou/uL (4.8-10.8)
[2021-11-06 19:49] LABS: Prothrombin Time 13.7 sec (12.0-14.7)
[2021-11-06 19:50] LABS: PTT 33.9 sec (22.9-36.1)
[2021-11-06 19:58] LABS: ALT (SGPT) 28 U/L (8-55); AST (SGOT) 30 U/L (5-34); Albumin 2.9 g/dL (3.4-4.8); Alkaline Phosphatase 130 U/L (40-110); Anion Gap 12 mmol/L (10-20); BUN (Urea Nitrogen) 24 mg/dL (8.4-25.7); Bilirubin, Direct 0.4 mg/dL (0.1-0.3); Bilirubin, Total 0.9 mg/dL (0.2-1.2); Calc. Creatinine Clearance 140 mL/min (70-130); Calcium 8.4 mg/dL (7.8-10.44); Carbon Dioxide 22 mmol/L (23-31); Chloride 113 mmol/L (98-107); Globulin 3.8 g/dL (2.4-3.5); Glucose 132 mg/dL (80-115); Magnesium 2.4 mg/dL (1.6-2.6); Phosphorus 2.7 mg/dL (2.3-4.7); Potassium 3.8 mmol/L (3.5-5.1); Protein, Total 6.7 g/dL (5.8-8.1); Sodium 143 mmol/L (136-145)
[2021-11-06 20:07] LABS: Band 9 % (5-11); Lymphocytes 13 % (21-51); MDiff Complete? YES; Monocytes 4 % (0-10); Neutrophil 74 % (42-75); Nucleated RBC 2 % (0); Platelet Morphology Comment Appears Increased; Polychromasia MODERATE = 3-4 cells (100X) (0-2/hpf)
[2021-11-06 22:29] VITALS: TEMP 98.4
[2021-11-06 23:41] LABS: Actual Bicarbonate (HCO3a) 21.7 mEq/L (22-28); Base Excess (BEa) -0.9 mEq/L (-2.0 to +3.0); CO2 Tension 29.3 mmHg (35.0-45.0); Calcium, Ionized (arterial) 1.14 mmol/L (1.12-1.30); Carboxyhemoglobin (COHb) 0.8 gm% (0.0-3.0); Hemoglobin (Hb) 10.8 g/dL (14.0-18.0); O2 Tension (PaO2), arterial 66.7 mmHg (> 80.0); Potassium - ABG Lab 3.55 mmol/L (3.70-5.30); pH, Arterial 7.49 (7.35-7.45)
[2021-11-06 23:42] LABS: Puncture Site Arterial Line
[2021-11-06 23:43] LABS: ALV-art Gradient 181.875 mmHg (0-20)
[2021-11-06 23:43] LABS: Hemoglobin 9.7 g/dL (14.0-18.0); Mean Corpuscular HGB CONC 31.8 g/dL (32.0-36.0); Mean Corpuscular Hemoglobin 30.9 pg (27.0-31.0); Mean Corpuscular Volume 97.5 fL (78.0-98.0); Platelet Count 434 thou/uL (130-400); RBC Distribution Width 14.2 % (11.5-14.5); Red Blood Cell (RBC) Count 3.12 mill/uL (4.70-6.10); White Blood Cell (WBC) Count 21.4 thou/uL (4.8-10.8)
[2021-11-06 23:55] LABS: INR-International Normal Ratio 1.1; PTT 34.1 sec (22.9-36.1); Prothrombin Time 13.9 sec (12.0-14.7)
[2021-11-07 00:01] LABS: Magnesium 2.4 mg/dL (1.6-2.6); Phosphorus 2.9 mg/dL (2.3-4.7)
[2021-11-07 00:02] VITALS: BP 107/78
[2021-11-07 00:03] LABS: Band 4 % (5-11); Hypochromia SLIGHT = 6-15 cells (100X) (0-5/hpf); Lymphocytes 21 % (21-51); MDiff Complete? YES; Monocytes 7 % (0-10); Neutrophil 68 % (42-75); Platelet Morphology Comment Appears Increased
[2021-11-07] MEDS ORDERED: Morphine 4 MG/ML VIAL ONE ×2 (01:14→01:59)
[2021-11-07] MEDS ORDERED: Heparin 10,000 UNITS/ 10 ML VIAL ONE (01:14)
[2021-11-07] MEDS: Morphine 10 MG/ML VIAL SLOW IVP PRN ×2 (01:47→02:02)
[2021-11-07] MEDS: Lorazepam 2 MG/ML VIAL SLOW IVP PRN ×2 (01:47→02:02)
[2021-11-07] MEDS ORDERED: Sodium Chloride 0.9% 10 ML ONE (01:47)
[2021-11-07 03:16] LABS: ALT (SGPT) 27 U/L (8-55); AST (SGOT) 29 U/L (5-34); Albumin 2.7 g/dL (3.4-4.8); Alkaline Phosphatase 125 U/L (40-110); Anion Gap 17 mmol/L (10-20); BUN (Urea Nitrogen) 25 mg/dL (8.4-25.7); Bilirubin, Direct 0.5 mg/dL (0.1-0.3); Bilirubin, Total 0.8 mg/dL (0.2-1.2); Calc. Creatinine Clearance 140 mL/min (70-130); Calcium 8.4 mg/dL (7.8-10.44); Carbon Dioxide 18 mmol/L (23-31); Chloride 112 mmol/L (98-107); Globulin 3.7 g/dL (2.4-3.5); Glucose 122 mg/dL (80-115); Magnesium 2.4 mg/dL (1.6-2.6); Phosphorus 2.9 mg/dL (2.3-4.7); Potassium 3.6 mmol/L (3.5-5.1); Protein, Total 6.4 g/dL (5.8-8.1); Sodium 143 mmol/L (136-145)
== END 2021-11-07 03:23 | disposition expired | DRG 955 ==
LOC: ERS 16:34 → SDC 17:48 → CCU 19:38
PROVIDERS: ADMIT Surgery; ATTEND Surgery
PROC: 00C40ZZ Extirpation of Matter from Intracranial Subdural Space, Open Approach (ICD-10-PCS; principal; 2021-10-26)
PROC: 009300Z Drainage of Intracranial Epidural Space with Drainage Device, Open Approach (ICD-10-PCS; 2021-10-26)
PROC: 3E033XZ Introduction of Vasopressor into Peripheral Vein, Percutaneous Approach (ICD-10-PCS; 2021-10-26)
PROC: 30233N1 Transfusion of Nonautologous Red Blood Cells into Peripheral Vein, Percutaneous Approach (ICD-10-PCS; 2021-10-29)
PROC: 0BCJ8ZZ Extirpation of Matter from Left Lower Lung Lobe, Via Natural or Artificial Opening Endoscopic (ICD-10-PCS; 2021-10-29)
PROC: 0BCG8ZZ Extirpation of Matter from Left Upper Lung Lobe, Via Natural or Artificial Opening Endoscopic (ICD-10-PCS; 2021-10-29)
PROC: 0BCF8ZZ Extirpation of Matter from Right Lower Lung Lobe, Via Natural or Artificial Opening Endoscopic (ICD-10-PCS; 2021-10-29)
PROC: 5A1955Z Respiratory Ventilation, Greater than 96 Consecutive Hours (ICD-10-PCS; 2021-10-31)
PROC: 0BCJ8ZZ Extirpation of Matter from Left Lower Lung Lobe, Via Natural or Artificial Opening Endoscopic (ICD-10-PCS; 2021-11-04)
PROC: 0BCG8ZZ Extirpation of Matter from Left Upper Lung Lobe, Via Natural or Artificial Opening Endoscopic (ICD-10-PCS; 2021-11-04)
PROC: 0BCF8ZZ Extirpation of Matter from Right Lower Lung Lobe, Via Natural or Artificial Opening Endoscopic (ICD-10-PCS; 2021-11-04)
PROC: 03HY32Z Insertion of Monitoring Device into Upper Artery, Percutaneous Approach (ICD-10-PCS; 2021-11-05)
PROC: 06HY33Z Insertion of Infusion Device into Lower Vein, Percutaneous Approach (ICD-10-PCS; 2021-11-05)
DX: S06.5X9A Traumatic subdural hemorrhage with loss of consciousness of unspecified duration, initial encounter (principal); S27.322A Contusion of lung, bilateral, initial encounter; J96.00 Acute respiratory failure, unspecified whether with hypoxia or hypercapnia; J69.0 Pneumonitis due to inhalation of food and vomit; S22.089A Unspecified fracture of T11-T12 vertebra, initial encounter for closed fracture; Z66 Do not resuscitate; S22.42XA Multiple fractures of ribs, left side, initial encounter for closed fracture; N17.9 Acute kidney failure, unspecified; D62 Acute posthemorrhagic anemia; E87.0 Hyperosmolality and hypernatremia; Z20.822 Contact with and (suspected) exposure to COVID-19; S02.19XB Other fracture of base of skull, initial encounter for open fracture; S06.6X9A Traumatic subarachnoid hemorrhage with loss of consciousness of unspecified duration, initial encounter; S42.101A Fracture of unspecified part of scapula, right shoulder, initial encounter for closed fracture; S42.102A Fracture of unspecified part of scapula, left shoulder, initial encounter for closed fracture; S06.1X9A Traumatic cerebral edema with loss of consciousness of unspecified duration, initial encounter; S02.31XA Fracture of orbital floor, right side, initial encounter for closed fracture; S42.002A Fracture of unspecified part of left clavicle, initial encounter for closed fracture; H05.239 Hemorrhage of unspecified orbit; I10 Essential (primary) hypertension; R40.2343 Coma scale, best motor response, flexion withdrawal, at hospital admission; R40.2113 Coma scale, eyes open, never, at hospital admission; R40.2213 Coma scale, best verbal response, none, at hospital admission; S02.40DA Maxillary fracture, left side, initial encounter for closed fracture; F14.10 Cocaine abuse, uncomplicated; S02.40CA Maxillary fracture, right side, initial encounter for closed fracture; E83.39 Other disorders of phosphorus metabolism; E87.6 Hypokalemia; V48.5XXA Car driver injured in noncollision transport accident in traffic accident, initial encounter
CPT/HCPCS: 31624; 36415; 36416; 36430; 36600; 70450; 70486; 70498; 71045; 71250; 71260; 72125; 72170; 74177; 76705; 80048; 80053; 80306; 80307; 81001; 82248; 82805; 83605; 83735; 84100; 85025; 85060; 85384; 85610; 85730; 86850; 86900; 86901; 87070; 87077; 87086; 87186; 87205; 89220; 90471; 90715; 93005; 93010; 93970; 94002; 94003; 94640; 95712; 95816; 95819; 95957; 96374; 96375; C1789; G0390; J0360; J0692; J1644; J1815; J1940; J1953; J2001; J2060; J2250; J2270; J2370; J2543; J2704; J3010; J3475; J3480; J3490; J7030; J7050; J7120; J7131; J7620; J7799; P9016; P9045; Q9967; S0028; U0003; U0005

== ENCOUNTER → 2021-11-05 | Day surgery (SDC) | payer OTHER | LOC: SJX 08:50 | PROC: 03HY32Z Insertion of Monitoring Device into Upper Artery, Percutaneous Approach (ICD-10-PCS; principal; 2021-11-05) | DX: S06.6X9A Traumatic subarachnoid hemorrhage with loss of consciousness of unspecified duration, initial encounter (principal); S02.19XB Other fracture of base of skull, initial encounter for open fracture; S02.31XA Fracture of orbital floor, right side, initial encounter for closed fracture; S42.101A Fracture of unspecified part of scapula, right shoulder, initial encounter for closed fracture; S42.102A Fracture of unspecified part of scapula, left shoulder, initial encounter for closed fracture; S22.42XA Multiple fractures of ribs, left side, initial encounter for closed fracture; S42.032A Displaced fracture of lateral end of left clavicle, initial encounter for closed fracture; J96.00 Acute respiratory failure, unspecified whether with hypoxia or hypercapnia; S22.080A Wedge compression fracture of T11-T12 vertebra, initial encounter for closed fracture; S22.029A Unspecified fracture of second thoracic vertebra, initial encounter for closed fracture; S27.322A Contusion of lung, bilateral, initial encounter; S40.812A Abrasion of left upper arm, initial encounter; S40.811A Abrasion of right upper arm, initial encounter; S80.211A Abrasion, right knee, initial encounter; F14.10 Cocaine abuse, uncomplicated; S02.82XA Fracture of other specified skull and facial bones, left side, initial encounter for closed fracture; S02.0XXA Fracture of vault of skull, initial encounter for closed fracture; I10 Essential (primary) hypertension; R00.1 Bradycardia, unspecified; V89.2XXA Person injured in unspecified motor-vehicle accident, traffic, initial encounter ==